=== PATIENT | male | born 1960 | race Caucasian/White ===

== ENCOUNTER 2019-01-14 12:17 | Outpatient (CLI) | payer MEDICAID ==
[~2019-01-14 12:17] MED LIST: HYDR1TAB10 PO
== END 2019-01-14 23:59 | disposition home or self-care (01) ==
LOC: CARD DIAG 12:17 → RAD 23:59
PROVIDERS: ATTEND Obstetrics & Gynecology
DX: R94.31 Abnormal electrocardiogram [ECG] [EKG] (principal); F11.20 Opioid dependence, uncomplicated; Z87.891 Personal history of nicotine dependence
CPT/HCPCS: 93005

== ENCOUNTER 2019-02-17 13:20 | Outpatient (CLI) | payer MEDICARE, MEDICAID | END 2019-02-17 23:59 | disposition home or self-care (01) | LOC: RAD 13:20 | PROVIDERS: ATTEND Obstetrics & Gynecology | DX: Z01.818 Encounter for other preprocedural examination (principal); F11.20 Opioid dependence, uncomplicated | CPT/HCPCS: 93005 ==